=== PATIENT | female | born 1985 | race Caucasian/White ===

== ENCOUNTER 2017-07-27 09:45 | Emergency (ER) | payer OTHER ==
[2017-07-27 11:06] VITALS: BP 123/77
--- NOTE | 2017-07-27 11:21 | UC ---
Respiratory Complaint HPI - HPI Summary HPI Summary: chest congestion x 7 days + nasal congestion , pnd, ear pain , no sore throat no fever, + chills, lost her voice 2 days ago - History of Current Complaint Chief Complaint: UCGeneralIllness Stated Complaint: HEAD COLD SORE THROAT Time Seen by Provider: 07/27/17 11:12 Hx Obtained From: Patient Hx Last Menstrual Period: HERBIE ?: No Onset/Duration: Gradual Onset, Lasting Days - 7, Still Present Timing: Constant Severity Initially: Moderate Severity Currently: Moderate Character: Cough: Nonproductive Aggravating Factors: Exertion, Deep Breaths Alleviating Factors: Nothing Associated Signs And Symptoms: Positive: URI, Nasal Congestion, Hoarseness. Negative: Wheezing, Hemoptysis, Dizziness, Calf Pain, Calf Swelling, Edema - Allergies/Home Medications Allergies/Adverse Reactions: Allergies Allergy/AdvReac Type Severity Reaction Status Date / Time No Known Allergies Allergy Verified 07/27/17 11:06 Home Medications: Home Medications NK [No Home Medications Reported] 07/27/17 [History Confirmed 07/27/17] PMH/Surg Hx/FS Hx/Imm Hx Previously Healthy: Yes - Surgical History Surgical History: Yes Surgery Procedure, Year, and Place: T&A A CHILD - Family History Known Family History: Negative: Diabetes - Social History Alcohol Use: Occasionally Substance Use Type: None Smoking Status (MU): Never Smoked Tobacco - Immunization History Most Recent Influenza Vaccination: NOT CURRENT Review of Systems Constitutional: Negative Skin: Negative Eyes: Negative ENT: Ear Ache, Nasal Discharge, Sinus Congestion Respiratory: Cough Cardiovascular: Negative Gastrointestinal: Negative Is Patient Immunocompromised?: No All Other Systems Reviewed And Are Negative: Yes Physical Exam Triage Information Reviewed: Yes Appearance: Well-Appearing, No Pain Distress, Well-Nourished Vital Signs: Initial Vital Signs Temp 98.0 F 07/27/17 11:00 Pulse 78 07/27/17 11:00 Resp 16 07/27/17 11:00 BP 123/77 07/27/17 11:00 Pulse Ox 100 07/27/17 11:00 Vital Signs Reviewed: Yes Eyes: Positive: Conjunctiva Clear ENT: Positive: Normal ENT inspection, Hearing grossly normal, Pharynx normal Neck exam: Normal Neck: Positive: Supple, Nontender, No Lymphadenopathy Respiratory: Positive: Chest non-tender, Lungs clear, Normal breath sounds Cardiovascular: Positive: RRR, No Murmur, Pulses Normal Skin Exam: Normal UC Diagnostic Evaluation - Laboratory O2 Sat by Pulse Oximetry: 100 Respiratory Course/Dx - Differential Dx/Diagnosis Provider Diagnoses: laryngitis Discharge - Discharge Plan Condition: Stable Disposition: HOME Patient Education Materials: Laryngitis (ED) Referrals: Blanca Suarez MD [Primary Care Provider] - If Needed
== END 2017-07-27 11:25 | disposition home or self-care (01) ==
LOC: UCCORT 09:45
DX: J04.0 Acute laryngitis (principal); R09.81 Nasal congestion
CPT/HCPCS: 99201; G0463